=== PATIENT | female | born 1995 | race Caucasian/White ===

== ENCOUNTER 2021-09-25 10:31 | Outpatient (CLI) | payer BC, SELFPAY ==
--- NOTE | ~2021-09-25 | US_ITS ---
EXAMINATION: US OB /maternal detail DATE: 09/25/2021 11:56 INDICATION: Second trimester anatomic survey TECHNIQUE: Real-time ultrasound of the pelvis was performed. COMPARISON: None. FINDINGS: There is a single living fetus in vertex presentation. The placenta is anterior and low-lying. heart rate is 149 beats per minute (bpm). cardiac activity and movement are noted. The a mniotic fluid index is subjectively normal. The following anatomy was identified as normal: 4 chamber heart 3 vessel cord cord insertion kidneys urinary bladder stomach spine diaphragm ventricles cisterna magna cerebellum The following biometric data were obtained: Biparietal diameter (BPD): 4.3 cm; head circumference (HC): 15.1 cm; abdominal circumference (AC): 13 .1 cm; femur length (FL): 2.9 cm. These measurements are concordant. Estimated weight is 252 g +/- 37g. As single measurements, these parameters are each equal to the following estimated gestational ages w ith ranges of +/- 2 standard deviations: BPD: 18 weeks 6 days +/- 1 weeks 5 days. HC: 18 weeks 1 days +/- 1 weeks 3 days. AC: 18 weeks 5 days +/- 2 weeks 0 days. FL: 18 weeks 6 days +/- 1 weeks 6 days. estimated gestational age based solely on measurements from this exam is 18 weeks 5 days +/- 1 weeks 2 days. IMPRESSION: 1. Single living fetus in vertex presentation. 2. Estimated weight is 252 g +/- 37g. 3. Low-lying placenta. Reviewed, dictated and finalized at location A.
== END 2021-09-25 10:32 | disposition home or self-care (01) ==
PROVIDERS: Visit Provider Obstetrics & Gynecology
DX: O44.42 Low lying placenta NOS or without hemorrhage, second trimester (principal); Z3A.18 18 weeks gestation of pregnancy
CPT/HCPCS: 76805